=== PATIENT | female | born 1945 | race Caucasian/White ===

== ENCOUNTER 2019-06-05 08:59 | Outpatient (CLI) | payer MEDICARE, BC, SELFPAY ==
--- NOTE | ~2019-06-05 | DEXA_ITS ---
BMD(1) Young-Adult(2) Age-Matched(3) Region (g/cm2) T-score Z-score WHO Classification L1 1.112 -0.2 1.0 Normal L2 1.238 0.2 1.5 Normal L3 1.438 1.8 3.0 Normal L4 1.404 1.4 2.7 Normal L1-L4 1.310 0.9 2.2 Normal Trend: L1-L4 Change vs Change vs Measured Age BMD(1) Baseline Previous Date ([age]) (g/cm2) (%) (%) 06[birth year]05/2019 [age] 1.310 baseline - 1 - Statistically 68% of repeat scans fall within 1SD (+- 0.010 g/cm2 for AP Spine L1-L4) 2 - [place] (Combined NHANES (ages 20-30) / Re.Mu (ages 20-40)) AP Spine Reference Population (v112) 3 - Matched for Age, Weight (females 25-100 kg), Ethnic 11 - World Health Organization - Definition of Osteoporosis and Osteopenia for Women: Normal = T-score at or above -1.0 SD; Osteopenia = T-score between -1.0 and -2.5 SD; Osteoporosis = T-score at or below -2.5 SD; (WHO definitions only apply when a young healthy Women reference database is used to determine T-scores.) Printed: 06/05/2019 9:58:05 AM (13.60)76:3.00:50.00:12.0 0.00:11.40 0.60x1.05 24.9:%Fat=38.3% 0.00:0.00 0.00:0.00 Verify bone is centered and there is sufficient tissue next to bone. Filename: [id number] Scan Mode: Standard;OneScan 37.0 [facility] [id number] BMD(1) Young-Adult(2,7) Age-Matched(3) Region (g/cm2) T-score Z-score WHO Classification Neck Left 0.909 -0.9 0.6 Normal Right 0.909 -0.9 0.6 Normal Mean 0.909 -0.9 0.6 Normal Difference 0.000 0.0 0.0 - Total Left 0.980 -0.2 1.1 Normal Right 0.894 -0.9 0.4 Normal Mean 0.937 -0.6 0.7 Normal Difference 0.087 0.7 0.7 - Hip [place] Length Comparison (mm) (Right = 106.1 mm) (Mean = 104.6 mm) (Left = 112.0 mm) Trend: Total Mean Change vs Change vs Measured Age BMD(1) Baseline Previous Date (years) (g/cm2) (%) (%) 06/05/2019 [age] 0.937 baseline - 1 - Statistically 68% of repeat scans fall within 1SD (+- 0.010 g/cm2 for DualFemur Total) 2 - [place] (Combined NHANES (ages 20-30) / Re.Mu (ages 20-40)) Femur Reference Population (v112) 3 - Matched for Age, Weight (females 25-100 kg), Ethnic 7 - DualFemur Total T-score difference is 0.7. Asymmetry is Mild. 11 - World Health Organization - Definition of Osteoporosis and Osteopenia for Women: Normal = T-score at or above -1.0 SD; Osteopenia = T-score between -1.0 and -2.5 SD; Osteoporosis = T-score at or below -2.5 SD; (WHO definitions only apply when a young healthy Women reference database is used to determine T-scores.) Printed: 06/05/2019 9:58:05 AM (13.60); Filename: [id number]; Right Femur; 20.5:%Fat=31.6%; Neck Angle (deg)= 56; Scan Mode: Standard 37.0 uGy; Left Femur; 18.3:%Fat=40.9%; Neck Angle (deg)= 66; Scan Mode: Standard 37.0 uGy [employer] [id number] Dear Constantin Palmer, Your patient Karol Alexandre completed a BMD test on 06/05/2019 using the [employer] DXA System (analysis version: 13.60) manufactured by [employer]. The following summarizes the results of our evaluation. PATIENT BIOGRAPHICAL: Name: Karol Alexandre Date: 1945 H
== END 2019-06-05 09:00 | disposition home or self-care (01) ==
PROVIDERS: PCP Family Medicine; Visit Provider Family Medicine
DX: Z78.0 Asymptomatic menopausal state (principal)
CPT/HCPCS: 77080

== ENCOUNTER → 2020-10-26 00:14 | Outpatient (CLI) | payer MEDICARE, BC, SELFPAY ==
[2020-10-26 16:57] LABS: SARS-CoV-2 RNA PCR Negative
== END ==
PROVIDERS: PCP Family Medicine; Visit Provider Surgery
DX: Z01.812 Encounter for preprocedural laboratory examination (principal); Z20.822 Contact with and (suspected) exposure to COVID-19
CPT/HCPCS: C9803; U0003; U0005

== ENCOUNTER 2020-10-26 09:18 | Outpatient (CLI) | payer MEDICARE, BC, SELFPAY ==
[2020-10-26 09:41] LABS: Basophils Percent Auto 0.7 % (0.2-1.2); Eosinophils Absolute Auto 0.1 K/mm3 (0-0.3); Eosinophils Percent Auto 2.7 % (0-4.4); Hematocrit 38.5 % (37.0-47.0); Hemoglobin 12.9 g/dL (12.0-15.0); Immature Granulocyte Absolute 0.01 K/mm3 (0.00-0.031); Immature Granulocyte Percent A 0.2 % (0-0.5); Lymphocytes Percent Auto 33.7 % (18.3-44.2); Mean Corpuscular HGB Conc 33.5 g/dl (32-36); Mean Corpuscular Hemoglobin 30.2 pg (26-34); Mean Corpuscular Volume 90.2 fl (80-100); Mean Platelet Volume 9.7 fl (7.4-10.4); Monocytes Absolute Auto 0.5 K/mm3 (0.1-0.6); Monocytes Percent Auto 11.2 % (2.6-8.5); Neutrophils Absolute Auto 2.3 K/mm3 (1.3-6.7); Neutrophils Percent Auto 51.5 % (45.5-73.1); Platelet Count Result 242 k/mm3 (150-375); Red Blood Count 4.27 M/mm3 (4.2-5.4); White Blood Count 4.5 K/mm3 (4.5-10.0)
[2020-10-26 09:52] LABS: Alanine Aminotransferase 50 U/L (4-35); Albumin Level 4.6 g/dL (3.5-5.1); Alkaline Phosphatase 89 U/L (38-126); Amylase 81 U/L (30-110); Anion Gap 10 mmol/L (8-16); Aspartate Amino Transferase 36 U/L (14-36); Bilirubin,Total 0.6 mg/dL (0.2-1.3); Blood Urea Nitrogen 14 mg/dL (7-17); Calcium 9.7 mg/dL (8.4-10.2); Carbon Dioxide 28 mmol/L (22-30); Chloride 104 mmol/L (98-107); Estimated Glomerular Filt Rate > 60; Glucose 89 mg/dL (65-105); Lipase 141 U/L (23-300); Potassium 3.8 mmol/L (3.4-5.0); Sodium 142 mmol/L (137-145)
== END 2020-10-26 09:19 | disposition home or self-care (01) ==
PROVIDERS: PCP Family Medicine; Visit Provider Surgery
DX: K80.10 Calculus of gallbladder with chronic cholecystitis without obstruction (principal); Z01.812 Encounter for preprocedural laboratory examination
CPT/HCPCS: 36415; 80053; 82150; 82248; 83690; 85025; C9803; U0003; U0005

== ENCOUNTER 2020-10-30 01:23 | Day surgery (SDC) | payer MEDICARE, BC, SELFPAY ==
[2020-10-24 13:43] VITALS: BMI 30.3
[2020-10-30] VITALS (9 sets, daily range): BP systolic 104–145; BP diastolic 52–59; PULSE 51–59; RESP 16–20; TEMP 36.2–36.9; O2SAT 94–99
[2020-10-30] MEDS: ACETAMINOPHEN 500 MG TABLET 1000 MG PO (10:37)
[2020-10-30] MEDS: LACTATED RINGERS 1,000 ML 30 ML IV CONT ×2 (11:20→13:14)
--- NOTE | 2020-10-30 11:23 | WPDANESEPPF ---
Anes - Initial Pre Proc Eval Procedure: Operation Date: 10/30/20 12:00 Proposed Procedures p Laparoscopic Cholecystectomy with Possible Intraoperative Cholangiogram with Possible Open - Constantin Hubbard MD Date/Time: 10/30/20 11:23 Surgeon: Constantin Hubbard MD Pre Op Diagnosis: chronic cholecystitis with cholelithiasis Patient Data Age: 75 Gender: F Height: 1.61 m Weight: 78.95 kg Allergies Allergy/AdvReac Type Severity Reaction Status Date / Time codeine Allergy Mild Nausea Verified 10/30/20 10:33 Sulfa (Sulfonamide Allergy Mild Vomiting Verified 10/30/20 10:33 Antibiotics) Home Medications Medication Instructions Recorded Confirmed Type apixaban 5 mg tablet 5 mg PO BID 12/20/19 10/30/20 History metoprolol tartrate 25 mg tablet 25 mg PO DAILY 12/20/19 10/30/20 History potassium chloride 20 mEq oral 20 meq PO DAILY 12/20/19 10/30/20 History packet pravastatin 40 mg tablet 40 mg PO EVERY OTHER DAY 12/20/19 10/30/20 History calcium carbonate 500 mg calcium 500 mg PO DAILY 12/25/19 10/30/20 History (1,250 mg) tablet cinnamon bark 500 mg capsule 500 mg PO DAILY 12/25/19 10/30/20 History multivitamin 1 cap PO DAILY 12/25/19 10/30/20 History hydrocodone 5 mg-acetaminophen 325 1 tablet PO Q6H PRN #14 tablet 10/16/20 10/24/20 Rx mg tablet amlodipine 5 mg PO HS 10/24/20 10/30/20 History valsartan-hydrochlorothiazide 1 tablet PO DAILY 10/24/20 10/30/20 History Patient hx anesthesia problems: none Family hx anesthesia problems: none PMFSH Past Medical History Medical History Afib Hyperlipemia Hypertension Surgical History Surgical History H/O cardiac radiofrequency ablation History of History of knee replacement partial History of knee replacement, total left Family History Family History Father Diabetes mellitus Hypertension Mother Family history of arthritis Family history of malignant neoplasm Hypertension Social History Social History Smoking status: Never smoker Alcohol intake: never Living arrangements: with family Spiritual care concerns: No Anes - Eval Final PreProcedure Day of Procedure 10/30/20 11:23 Patient weight: overweight Heart: regular rate and rhythm Lungs: clear to auscultation Airway: Mallampati scale class II Neurological: alert and oriented Last oral intake: >/= 8 hours ASA classification: III Emergent: no Anesthetic plan: proceed Anesthesia type and monitoring: general ETT and standard monitoring Informed Consent: The patient's anesthetic plan and its attendant risks and benefits were discussed with the patient/family/POA. Questions were solicited and answers provided to the satisfaction of the patient/family/POA.
[2020-10-30] MEDS: KETOROLAC 15 MG/ML VIAL (*BKC) IV PUSH (11:27)
--- NOTE | 2020-10-30 11:46 | WPDHPUPDATE1 ---
History and Physical Update Update Date/Time: 10/30/20 11:46 History and Physical has been reviewed, including an updated exam of the patient. There are NO changes in the patient's condition. Risks, benefits, and alternatives have been discussed and questions answered. Patient agrees to proceed with procedure.
--- NOTE | 2020-10-30 13:10 | W.PM.PROC2 ---
Procedure Note - Detailed Date of Procedure 10/30/20 Pre-op Diagnosis chronic cholecystitis with cholelithiasis Post-op Diagnosis same Procedure Performed Laproscopic Cholecystectomy Surgeon Constantin Hubbard MD Color Adviser SHOAIB Argueta. Anesthesia general Indications Patient has a history of chronic cholecystitis with cholelithiasis. She also has some cardiac issues and waited through the time of severe COVID to proceed with elective cholecystectomy. Findings Fairly distended gallbladder with 10 mm cystic duct. No stones in the cystic duct that we could palpate. Upon removal there were several small in 1 medium-size stone in the GB. Description of Procedure Patient was seen preoperatively in the holding area and risks, benefits and alternatives confirmed. Patient was taken to the operating room and general anesthesia was induced. A time out was then preformed with the surgery team confirming patient and site of surgery. The abdomen was prepped and draped in the usual sterile fashion. Incision was made just below the umbilicus with an 11 blade knife. I placed 2 stay sutures of O- Vicryl on either side of the mid-line fascia beneath the umbilicus and was then able to slide in the Perez cannula through the fascial defect into the peritoneum. First under low flow and then under high flow the abdomen was insufflated with carbon dioxide never exceeding a pressure of 14. Three 5 mm trocars were then introduced under direct vision. The following trocars were introduced under direct vision: a 5 mm in the epigastrium and two 5 mm trocars along the right costal margin laterally in the subcostal area. There were not any adhesions to the underside of the gallbladder. I then carefully used the L-shaped cautery and the [place] dissector to dissect out the triangle of [place]. I then was able to dissect out both the cystic duct and cystic artery and identify a window of safety. The gall bladder was grasped and the cystic duct and artery were dissected free and clipped with an 5 mm endo-clip communications intern. The cystic duct and artery were clipped with use of 2 clips on the patient's side 1 on the gallbladder side utilizing a 5 mm endoclip-communications intern. The cystic duct was then transected. The cystic artery was also transected at this point. The gall bladder was removed using electrocautery and then removed from the abdomen using a large 10 mm grasper via the umbilical incision. The trocars were removed visualizing hemostasis and the remaining gas evacuated. The large trocar site at the umbilicus was closed with use of the 2 stay sutures of 0 Vicryl mentioned above and also a figure of 8 O-Vicryl suture. The 2 stay sutures mentioned above on either side of the fascia were also tied together to help approximate this midline fascia. Further local anesthetic was placed into each incision for postop pain control. The skin incisions were closed with subcuticular suture of 4-0 Monocryl. Surgical glue then was applied to all the incisions. Patient tolerated the procedure well was taken to the recovery room in good condition. Implants none Packing No Pathology yes (Gallbladder) Complications No immediate complications Condition stable Disposition PACU
[2020-10-30] MEDS: ONDANSETRON INJ 4 MG/2 ML VIAL IV PUSH (13:35)
[2020-10-30] MEDS: diphenhydrAMINE HCl INJ 50 MG/ML VIAL 12.5 MG IV PUSH (14:16)
[2020-10-30] MEDS: oxyCODONE HCL (*CRX) 5 MG TAB IR PO (14:24)
[2020-10-30] MEDS: fentaNYL CITRATE INJ (*CRX) 100 MCG/2 ML VIAL 25 MCG IV PUSH (14:41)
--- NOTE | 2020-10-30 15:13 | SUR.PHASEII ---
PT STATES NAUSEA IS MOSTLY RESOLVED NOW. PAIN REDUCED.
== END 2020-10-30 15:13 | disposition home or self-care (01) ==
PROVIDERS: PCP Family Medicine; Visit Provider Surgery
PROC: 0FT44ZZ Resection of Gallbladder, Percutaneous Endoscopic Approach (ICD-10-PCS; CPT 47562; principal; 2020-10-30 12:00)
DX: K80.10 Calculus of gallbladder with chronic cholecystitis without obstruction (principal); I48.91 Unspecified atrial fibrillation; I10 Essential (primary) hypertension; E78.5 Hyperlipidemia, unspecified; Z79.01 Long term (current) use of anticoagulants
CPT/HCPCS: 47562; 88304; A9270; J0690; J1100; J1200; J1885; J2405; J2704; J2710; J3010; J7120; Q9966

== ENCOUNTER → 2020-12-28 00:43 | Outpatient (CLI) | payer MEDICARE, BC, SELFPAY ==
[2020-12-28 22:45] LABS: SARS-CoV-2 RNA PCR Negative
== END ==
PROVIDERS: PCP Family Medicine; Visit Provider Internal Medicine Gastroenterology
DX: Z01.812 Encounter for preprocedural laboratory examination (principal); Z20.822 Contact with and (suspected) exposure to COVID-19
CPT/HCPCS: C9803; U0003; U0005

== ENCOUNTER 2021-01-01 01:58 | Day surgery (SDC) | payer MEDICARE, BC, SELFPAY ==
[2020-12-27 09:47] VITALS: BMI 29.2
[2021-01-01] VITALS (7 sets, daily range): BP systolic 93–189; BP diastolic 55–83; PULSE 47–58; RESP 16–24; TEMP 35.7–36.1; O2SAT 95–99
--- NOTE | ~2021-01-01 | XR_ITS ---
EXAMINATION: XR ERCP DATE: 01/01/2021 13:23 INDICATION: Abnormal liver function tests. Gallstones. TECHNIQUE: 4 spot fluoroscopic images of the right upper quadrant were obtained during endoscopic ret rograde cholangiopancreatography (ERCP). Fluoroscopy exposure time was 179 seconds. COMPARISON: None. FINDINGS: The endoscope is in the second portion of the duodenum. There is contrast opacification of the pancreatic duct and common duct. There are surgical clips from cholecystectomy. IMPRESSION: 1. Contrast opacification of the common duct and pancreatic duct. Please refer to the ERCP procedure note for additional details. Reviewed, dictated and finalized at location A.
[2021-01-01] MEDS: LACTATED RINGERS 1,000 ML 150 ML IV CONT (11:24)
--- NOTE | 2021-01-01 11:28 | P.PNAN_ITS ---
Anes - Initial Pre Proc Eval Procedure: Operation Date: 01/01/21 12:00 Proposed Procedures p Endoscopic Retro Cholangiopancreatogram - Sukhjinder Boone MD Date/Time: 01/01/21 11:28 Surgeon: Sukhjinder Boone MD Pre Op Diagnosis: abnormal liver function test, gallstones Patient Data Age: 75 Gender: F Height: 1.61 m Weight: 76.6 kg Last Vital Signs Temp 97.0 F L 01/01/21 11:09 Pulse 58 L 01/01/21 11:09 Resp 16 01/01/21 11:09 BP 189/74 H 01/01/21 11:09 Pulse Ox 99 01/01/21 11:09 Allergies Allergy/AdvReac Type Severity Reaction Status Date / Time codeine AdvReac Intermediate Nausea Verified 01/01/21 11:08 Sulfa (Sulfonamide AdvReac Intermediate Vomiting Verified 01/01/21 11:08 Antibiotics) Home Medications Medication Instructions Recorded Confirmed Type apixaban 5 mg tablet 5 mg PO BID 12/20/19 01/01/21 History metoprolol tartrate 25 mg tablet 25 mg PO DAILY 12/20/19 12/27/20 History potassium chloride 20 mEq oral 20 meq PO DAILY 12/20/19 12/27/20 History packet pravastatin 40 mg tablet 40 mg PO EVERY OTHER DAY 12/20/19 12/27/20 History cinnamon bark 500 mg capsule 500 mg PO DAILY 12/25/19 12/27/20 History multivitamin 1 cap PO DAILY 12/25/19 12/27/20 History amlodipine 5 mg PO HS 10/24/20 12/27/20 History valsartan-hydrochlorothiazide 1 tablet PO DAILY 10/24/20 12/27/20 History alendronate 70 mg PO WEEKLY 12/27/20 12/27/20 History calcium carbonate [Calcium 600] 600 mg PO BID 12/27/20 12/27/20 History Patient hx anesthesia problems: none Family hx anesthesia problems: none PMFSH Past Medical History Medical History Afib Hyperlipemia Hypertension Surgical History Surgical History H/O cardiac radiofrequency ablation History of History of knee replacement partial History of knee replacement, total left Hx laparoscopic cholecystectomy Family History Family History Father Diabetes mellitus Hypertension Mother Family history of arthritis Family history of malignant neoplasm Hypertension Social History Social History (Updated 12/16/20 @ 14:50 by Grace Buenrostro CMA) Smoking status: Never smoker Alcohol intake: never Substance use: never Substance use type: does not use Living arrangements: with family Spiritual care concerns: No Anes - Eval Final PreProcedure Day of Procedure 01/01/21 11:28 Patient weight: overweight Heart: regular rate and rhythm Lungs: clear to auscultation Airway: Mallampati scale class III Neurological: alert and oriented Last oral intake: >/= 8 hours ASA classification: III Emergent: no Anesthetic plan: proceed Anesthesia type and monitoring: general ETT and standard monitoring Informed Consent: The patient's anesthetic plan and its attendant risks and b enefits were discussed with the patient/family/POA. Questions were solicited and answers provided to the satisfaction of the patient/family/POA.
--- NOTE | 2021-01-01 11:33 | WPDHPUPDATE1 ---
History and Physical Update Update Date/Time: 01/01/21 11:33 History and Physical has been reviewed, including an updated exam of the patient. There are NO changes in the patient's condition. Risks, benefits, and alternatives have been discussed and questions answered. Patient agrees to proceed with procedure.
[2021-01-01] MEDS: INDOMETHACIN 50 MG SUPP.RECT RECTAL (12:48)
[2021-01-01] MEDS: ONDANSETRON INJ 4 MG/2 ML VIAL IV PUSH (13:58)
== END 2021-01-01 14:40 | disposition home or self-care (01) ==
PROVIDERS: PCP Family Medicine; Visit Provider Internal Medicine Gastroenterology
PROC: (CPT 43260; principal; 2021-01-01 12:00)
DX: R94.5 Abnormal results of liver function studies (principal); R93.3 Abnormal findings on diagnostic imaging of other parts of digestive tract; K57.10 Diverticulosis of small intestine without perforation or abscess without bleeding; K80.50 Calculus of bile duct without cholangitis or cholecystitis without obstruction; Z98.890 Other specified postprocedural states; I48.91 Unspecified atrial fibrillation; I10 Essential (primary) hypertension; E78.5 Hyperlipidemia, unspecified; Z79.01 Long term (current) use of anticoagulants
CPT/HCPCS: 43262; 43264; 74329; A9270; J0330; J2405; J2704; J7120

== ENCOUNTER 2021-01-03 21:02 | Emergency (ER) | payer MEDICARE, BC, SELFPAY ==
--- NOTE | ~2021-01-03 | XR_ITS ---
EXAMINATION: XR chest 1V portable DATE: 01/03/2021 22:01 INDICATION: Cough and fever. TECHNIQUE: A single frontal view of the chest was obtained. COMPARISON: None. FINDINGS: There is mild atelectasis in the lower lung zones. No pleural effusion or pneumothorax. Car diomegaly is noted. IMPRESSION: 1. Mild atelectasis in the lower lung zones. 2. Cardiomegaly. Reviewed, dictated and finalized at location A.
[2021-01-03 21:05] VITALS: BP 177/69; PULSE 77; RESP 18; TEMP 36.7; O2SAT 97
[2021-01-03 21:53] LABS: Basophils Percent Auto 0.3 % (0.2-1.2); Eosinophils Absolute Auto 0.1 K/mm3 (0-0.3); Hemoglobin 12.9 g/dL (12.0-15.0); Immature Granulocyte Absolute 0.03 K/mm3 (0.00-0.031); Immature Granulocyte Percent A 0.3 % (0-0.5); Lymphocytes Absolute Auto 1.52 K/mm3 (0.9-3.2); Lymphocytes Percent Auto 15.3 % (18.3-44.2); Mean Corpuscular HGB Conc 33.9 g/dl (32-36); Mean Corpuscular Hemoglobin 30.6 pg (26-34); Mean Platelet Volume 9.6 fl (7.4-10.4); Monocytes Absolute Auto 0.9 K/mm3 (0.1-0.6); Monocytes Percent Auto 8.8 % (2.6-8.5); Neutrophils Absolute Auto 7.4 K/mm3 (1.3-6.7); Neutrophils Percent Auto 74.3 % (45.5-73.1); Platelet Count Result 195 k/mm3 (150-375); Red Blood Count 4.22 M/mm3 (4.2-5.4); Red Cell Distribution Width 13.1 % (11.5-14.5)
--- NOTE | 2021-01-03 21:56 | WPDEDEXPGENP ---
HPI - General Ped General Chief complaint: Fever Stated complaint: fever post procedure, flank pain Time Seen by Provider: 01/03/21 21:17 Source: RN notes reviewed History of Present Illness HPI narrative: Patient presents emergency department from home for fever. Patient states she had an ERCP performed by Dr. Coleman on 01/01/2021 states that yesterday she had temperature up to 100.8 at home and today took her temperature up to 101.8 patient states she has not taken any Tylenol or ibuprofen and the fever at this time is come down on its own she denies having any abdominal pain she denies any rhinorrhea cough shortness of breath chest pain nausea vomiting diarrhea or any other symptoms she denies any pain with urination Related Data Home Medications Medication Instructions Recorded Confirmed apixaban 5 mg tablet 5 mg PO BID 12/20/19 01/01/21 metoprolol tartrate 25 mg tablet 25 mg PO DAILY 12/20/19 12/27/20 potassium chloride 20 mEq oral 20 meq PO DAILY 12/20/19 12/27/20 packet pravastatin 40 mg tablet 40 mg PO EVERY OTHER DAY 12/20/19 12/27/20 cinnamon bark 500 mg capsule 500 mg PO DAILY 12/25/19 12/27/20 multivitamin 1 cap PO DAILY 12/25/19 12/27/20 amlodipine 5 mg PO HS 10/24/20 12/27/20 valsartan-hydrochlorothiazide 1 tablet PO DAILY 10/24/20 12/27/20 alendronate 70 mg PO WEEKLY 12/27/20 12/27/20 calcium carbonate [Calcium 600] 600 mg PO BID 12/27/20 12/27/20 Allergies Allergy/AdvReac Type Severity Reaction Status Date / Time codeine AdvReac Intermediate Nausea Verified 01/01/21 11:08 Sulfa (Sulfonamide AdvReac Intermediate Vomiting Verified 01/01/21 11:08 Antibiotics) Pediatric Review of Systems Review of Systems: Gen.: See HPI ENT: Denies congestion Respiratory: Denies shortness of breath or cough CV: Denies chest pain or palpitations GI: Denies abdominal pain nausea, emesis or diarrhea denies burning, urgency, frequency or hematuria Musculoskeletal: Denies back pain or muscle pain Neuro: Denies numbness, tingling, weakness or focal weakness Skin: Denies rash Except as documented, all other systems reviewed and negative PMFSH Past Medical History Medical History Afib Hyperlipemia Hypertension Surgical History Surgical History H/O cardiac radiofrequency ablation History of History of knee replacement partial History of knee replacement, total left Hx laparoscopic cholecystectomy Family History Family History Father Diabetes mellitus Hypertension Mother Family history of arthritis Family history of malignant neoplasm Hypertension Social History Social History Smoking status: Never smoker Alcohol intake: never Substance use: never Substance use type: does not use Spiritual care concerns: No Pediatric Exam Narrative: Physical exam: APPEARANCE: No acute distress, nontoxic, resting in bed EYES: EOMI HEENT: Normocephalic, atraumatic, OMM RESPIRATORY: No respiratory distress Clear to auscultation bilaterally with no rhonchi wheezing or rales. CARDIOVASCULAR: Regular rate and rhythm without murmurs rubs or gallops. ABDOMINAL: Soft, nontender, nondistended, no rebound or guarding MUSCULOSKELETAl: Moves all extremities. No clubbing, cyanosis or edema. NEURO: Awake and alert. Following commands, speech normal, no focal deficits SKIN:: Warm, dry. No rashes lesions or abrasions PSYCHIATRIC: Normal affect/mood, Course Course Emergency Course: Called discussed Dr. Coleman presentation and work-up. At this time he does not recommend CT scan of the abdomen pelvis his abdomen is soft and nontender recommends patient start on Levaquin 750 mg daily for 7 days with follow-up as an outpatient 130 will evaluate the patient abdominal exam remains so
[2021-01-03 22:02] LABS: INR 0.9; Prothrombin Time 12.4 Seconds (11.1-14.7)
[2021-01-03 22:03] LABS: Alanine Aminotransferase 151 U/L (4-35); Albumin Level 4.4 g/dL (3.5-5.1); Alkaline Phosphatase 214 U/L (38-126); Anion Gap 9 mmol/L (8-16); Aspartate Amino Transferase 67 U/L (14-36); Bilirubin,Total 1.3 mg/dL (0.2-1.3); Blood Urea Nitrogen 12 mg/dL (7-17); Calcium 9.7 mg/dL (8.4-10.2); Carbon Dioxide 26 mmol/L (22-30); Chloride 103 mmol/L (98-107); Estimated Glomerular Filt Rate > 60; Glucose 140 mg/dL (65-110); Lipase 715 U/L (23-300); Potassium 3.7 mmol/L (3.4-5.0); Sodium 138 mmol/L (137-145)
[2021-01-03 22:42] VITALS: BP 159/74; PULSE 67; RESP 16; O2SAT 96
[2021-01-03 22:46] LABS: Add Urine Microscopic? YES; Appearance Urine Clear (Clear); Bacteria Urine Trace /hpf; Bilirubin Urine Negative (Negative); Blood Urine Negative (Negative); Color Urine Yellow (Yellow); Glucose Urine UA Negative (Negative); Ketones Urine Negative (Negative); Leukocyte Esterase Ur Trace LEU/UL (Negative); Mucus Urine Few /lpf; Nitrate Urine Negative (Negative); Protein Urine Negative (Negative); Specific Grav Ur 1.023 (1.001-1.035); Squamous Epithelial Cell Urine Occasional /hpf (Few); Urobilinogen Urine Negative mg/dL (<2.0)
[2021-01-03] MEDS: levoFLOXacin 750 MG TABLET PO (23:35)
== END 2021-01-03 23:42 | disposition home or self-care (01) ==
PROVIDERS: Emergency Provider Emergency Medicine; PCP Family Medicine
DX: R50.82 Postprocedural fever (principal); I48.91 Unspecified atrial fibrillation; Z79.01 Long term (current) use of anticoagulants; E78.5 Hyperlipidemia, unspecified; I10 Essential (primary) hypertension; I51.7 Cardiomegaly; R91.8 Other nonspecific abnormal finding of lung field
CPT/HCPCS: 36415; 71045; 80053; 81001; 83690; 85025; 85610; 85730; 99283; A9270